=== PATIENT | female | born 1970 | race Caucasian/White ===

== ENCOUNTER → 2017-09-18 | Outpatient (CLI) | payer OTHER | LOC: M LRY 12:38 | DX: S59.901A Unspecified injury of right elbow, initial encounter (principal); S49.91XA Unspecified injury of right shoulder and upper arm, initial encounter; X58.XXXA Exposure to other specified factors, initial encounter; Y92.89 Other specified places as the place of occurrence of the external cause | CPT/HCPCS: 73030; G0463 ==

== ENCOUNTER → 2017-09-18 | Outpatient (CLI) | payer OTHER | LOC: M LRY 12:32 | DX: S49.91XA Unspecified injury of right shoulder and upper arm, initial encounter (principal); S59.901A Unspecified injury of right elbow, initial encounter; X58.XXXA Exposure to other specified factors, initial encounter; Y92.89 Other specified places as the place of occurrence of the external cause ==

== ENCOUNTER → 2018-08-15 | Outpatient (REF) | LOC: M LAB 10:55 | PROVIDERS: ATTEND Nurse Practitioner Adult Health | DX: Z00.00 Encounter for general adult medical examination without abnormal findings (principal) ==

== ENCOUNTER 2019-06-02 17:56 | Emergency (ER) | payer OTHER ==
[~2019-06-02] VITALS: Ht 170.2 cm; Wt 97.7 kg
[2019-06-02] MEDS ORDERED: HYZA100T2 PO (18:38)
[2019-06-02] MEDS ORDERED: LASI40TA9 PO (18:38)
[2019-06-02] MEDS ORDERED: JARD1TAB PO (18:38)
[2019-06-02] MEDS ORDERED: METO1TAB32 PO (18:38)
[2019-06-02] MEDS ORDERED: GLIP10TA PO (18:38)
[2019-06-02] MEDS ORDERED: JANU100T PO (18:38)
[2019-06-02] MEDS ORDERED: ZOLO100T PO (18:38)
[2019-06-02 18:42] LABS: BASO # 0.1 10^3/uL (0.0-0.2); BASO % 0.4 % (0.0-1.0); EOS # 0.2 10^3/uL (0.0-0.5); EOS % 1.5 % (0.0-3.0); HEMATOCRIT 44.2 % (36.0-47.0); HEMOGLOBIN 14.5 g/dl (12.0-15.5); LYMPH # 3.3 10^3/uL (1.5-5.0); LYMPH % 28.3 % (24.0-44.0); MEAN CORPUSCULAR HEMOGLOBIN 26.9 pg (27.0-33.0); MEAN CORPUSCULAR HGB CONC 32.8 g/dl (32.0-36.5); MEAN CORPUSCULAR VOLUME 81.9 fl (80.0-96.0); MONO # 0.6 10^3/uL (0.0-0.8); MONO % 5.1 % (0.0-5.0); NEUTROPHILS # 7.4 10^3/uL (1.5-8.5); PLATELET COUNT, AUTOMATED 247 10^3/uL (150-450); WHITE BLOOD COUNT 11.6 10^3/uL (4.0-10.0)
[2019-06-02 19:09] LABS: BLOOD UREA NITROGEN 18 MG/DL (7-18); CALCIUM LEVEL 9.5 MG/DL (8.5-10.1); CARBON DIOXIDE LEVEL 30 MEQ/L (21-32); CHLORIDE LEVEL 99 MEQ/L (98-107); CK-MB VALUE MASS 1.7 NG/ML (<3.6); CPK CREATINE PHOSPHOKINASE 65 U/L (26-192); CREATININE FOR GFR 1.39 MG/DL (0.55-1.30); GLOMERULAR FILTRATION RATE 42.6 (>51); GLUCOSE, FASTING 218 MG/DL (70-100); MB/CK RELATIVE INDEX 2.62 (< OR =4); SODIUM LEVEL 137 MEQ/L (136-145); TROPONIN I < 0.02 NG/ML (< 0.10)
[2019-06-02] MEDS ORDERED: ASPIRIN 81 MG CHEW TABLET PO ONE (20:15)
[2019-06-02] MEDS: NITROGLYCERIN 0.4 MG SUBL TABLET SL PRN ×2 (20:23→20:50)
[2019-06-02] MEDS ORDERED: ISOVUE-370 76% 100ML VIAL (Q9967) As Ordered ONE (20:31)
[2019-06-02 20:50] VITALS: BP 152/74
--- NOTE | 2019-06-02 20:51 | REPVR ---
PROCEDURE INFORMATION: Exam: CT Angiography Chest With Contrast Exam date and time: 06/02/2019 8:33 PM Clinical history: 49 years old, female; Chest pain; Additional info: R/O pe TECHNIQUE: Imaging protocol: Computed tomographic angiography of the chest with intravenous contrast. 3D rendering: MIP reconstructed images were created and reviewed. Radiation optimization: All CT scans at this facility use at least one of these dose optimization techniques: automated exposure control; mA and/or kV adjustment per patient size (includes targeted exams where dose is matched to clinical indication); or iterative reconstruction. Contrast material: ISOVUE 370; Contrast volume: 75 ml; Contrast route: IV; COMPARISON: CR PORTABLE CHEST X-RAY 06/02/2019 6:20 PM FINDINGS: Pulmonary arteries: There are no pulmonary emboli. Aorta: There is no aortic dissection or aneurysm. Lungs: Bilateral geographic groundglass opacities most consistent with atelectasis less likely mosaic perfusion. Pleural space: Unremarkable. No pneumothorax. No pleural effusion. Heart: Unremarkable. No cardiomegaly. No pericardial effusion. Lymph nodes: Unremarkable. No enlarged lymph nodes. Bones/joints: The spine demonstrates mild degenerative changes. Soft tissues: Unremarkable. IMPRESSION: 1. Bilateral geographic groundglass opacities most consistent with atelectasis less likely mosaic perfusion. 2. There is no aortic dissection or aneurysm. 3. There are no pulmonary emboli. Electronically signed by: Kd Crockett On 06/02/2019 20:51:43 PM
[2019-06-03 01:07] LABS: CK-MB VALUE MASS 1.2 NG/ML (<3.6); CPK CREATINE PHOSPHOKINASE 46 U/L (26-192); MB/CK RELATIVE INDEX 2.61 (< OR =4); TROPONIN I < 0.02 NG/ML (< 0.10)
[2019-06-03 01:45] VITALS: BP 142/73
--- NOTE | 2019-06-03 08:59 | REP ---
CHEST, SINGLE VIEW: There is no evidence of acute infiltrate. No pleural effusion is seen. The heart is normal in size. The mediastinal silhouette is unremarkable. The visualized osseous structures are intact. IMPRESSION: No acute pulmonary disease. Electronically Signed by Weston Frost MD 06/03/2019 09:03 A
--- NOTE | 2019-06-03 17:56 | ECGEPIP ---
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
--- NOTE | 2019-06-03 18:02 | ECGEPIP ---
[facility] - ED Test Date: 2019-06-03 Pat Name: MANUEL LEVI Department: Room: - Gender: Female [employer] Pump Truck Driver: : 1970 Requested By: CARLOZ Rossi Order Number: [id number] Reading MD: Ritu Thurman Measurements Intervals [place] Rate: 57 P: 51 [place]: 165 QRS: 39 QRSD: 94 T: 29 QT: 431 QTc: 421 Interpretive Statements SINUS BRADYCARDIA NSTTW abnormalities DECREASED RATE 06/02/19 18:19 Electronically Signed on 06-03-2019 18:01:53 EST by Ritu Thurman
== END 2019-06-03 01:46 | disposition home or self-care (01) ==
LOC: M ED 17:56
DX: R07.89 Other chest pain (principal); R06.02 Shortness of breath; R51 Headache; E11.9 Type 2 diabetes mellitus without complications; I10 Essential (primary) hypertension; Z79.899 Other long term (current) drug therapy; Z79.84 Long term (current) use of oral hypoglycemic drugs; Z88.8 Allergy status to other drugs, medicaments and biological substances
CPT/HCPCS: 36415; 71045; 71275; 80048; 82550; 82553; 84484; 85025; 93005; 93041; 94760; 99285; Q9967

== ENCOUNTER 2020-04-08 12:15 | Emergency (ER) | payer OTHER ==
[~2020-04-08] VITALS: Ht 170.2 cm; Wt 100.9 kg
[~2020-04-08 12:15] MED LIST: GLIP10TA PO; HYZA100T2 PO; JANU100T PO; JARD1TAB PO; LASI40TA9 PO; METO1TAB32 PO; ZOLO100T PO
[2020-04-08] MEDS ORDERED: LANTINJ4 SC (12:28)
[2020-04-08 13:25] LABS: BASO # 0.1 10^3/uL (0.0-0.2); BASO % 0.6 % (0.0-1.0); EOS # 0.2 10^3/uL (0.0-0.5); EOS % 1.8 % (0.0-3.0); HEMATOCRIT 41.3 % (36.0-47.0); HEMOGLOBIN 13.2 g/dl (12.0-15.5); LYMPH # 3.4 10^3/uL (1.5-5.0); LYMPH % 31.3 % (24.0-44.0); MEAN CORPUSCULAR HEMOGLOBIN 27.2 pg (27.0-33.0); MEAN CORPUSCULAR VOLUME 85.2 fl (80.0-96.0); MONO # 0.6 10^3/uL (0.0-0.8); MONO % 5.4 % (0.0-5.0); NEUTROPHILS # 6.5 10^3/uL (1.5-8.5); NEUTROPHILS % 60.4 % (36.0-66.0); PLATELET COUNT, AUTOMATED 218 10^3/uL (150-450); RED BLOOD COUNT 4.85 10^6/uL (4.00-5.40); WHITE BLOOD COUNT 10.7 10^3/uL (4.0-10.0)
[2020-04-08 13:48] LABS: ALBUMIN 3.5 GM/DL (3.2-5.2); ALT/SGPT 47 U/L (12-78); BILIRUBIN,DIRECT < 0.1 MG/DL (0.0-0.2); BILIRUBIN,TOTAL 0.3 MG/DL (0.2-1.0); BLOOD UREA NITROGEN 12 MG/DL (7-18); CALCIUM LEVEL 8.9 MG/DL (8.5-10.1); CARBON DIOXIDE LEVEL 33 MEQ/L (21-32); CHLORIDE LEVEL 103 MEQ/L (98-107); CREATININE FOR GFR 0.83 MG/DL (0.55-1.30); GLOMERULAR FILTRATION RATE > 60.0 (>51); GLUCOSE, FASTING 170 MG/DL (70-100); LIPASE 106 U/L (73-393); POTASSIUM SERUM 4.1 MEQ/L (3.5-5.1); SODIUM LEVEL 139 MEQ/L (136-145); TOTAL PROTEIN 7.1 GM/DL (6.4-8.2)
[2020-04-08 15:11] VITALS: BP 136/76
--- NOTE | 2020-04-08 15:22 | REPVR ---
PROCEDURE INFORMATION: Exam: US Abdomen, Limited; Right Upper Quadrant Exam date and time: 04/08/2020 3:07 PM Age: 50 years old Clinical indication: Abdominal pain; Generalized; Additional info: Ruq pain into back, HX of sludge TECHNIQUE: Imaging protocol: US abdomen. Real time ultrasound with image documentation. Limited exam focused on the right upper quadrant. COMPARISON: No relevant prior studies available. FINDINGS: Liver: The liver demonstrates increased echogenicity with decreased visualization of periportal fat without sound attenuation. The liver measures 21.3 cm in the midclavicular plane. Gallbladder: The gallbladder wall measures 1.8 mm. No gallstones. Common bile duct: The common bile duct measures 3.5 mm. No ductal calculi as visualized. Pancreas: The pancreas neck and body are unremarkable. The tail of the gland is obscured by bowel gas. Right kidney: The right kidney measures 11.9 x 5.4 x 4.5 cm. Unremarkable. A brief color Doppler examination of the right kidney was performed showing normal color shifts. Portal venous: A brief color Doppler examination of the portal vein was performed showing normal hepatopedal flow. IMPRESSION: 1. Limitations as above. 2. Mild fatty infiltration of the liver. 3. Mild hepatomegaly. Electronically signed by: Richar Encarnacion On 04/08/2020 15:22:17 PM
--- NOTE | 2020-04-10 16:47 | ED PDOC ---
Post-Departure Follow-Up gb us faxed to [facility] for fu Rubio Rodriguez MD Apr 10, 2020 16:47
== END 2020-04-08 15:51 | disposition home or self-care (01) ==
LOC: M ED 12:15
DX: R10.11 Right upper quadrant pain (principal); R11.0 Nausea; I10 Essential (primary) hypertension; K21.9 Gastro-esophageal reflux disease without esophagitis; K76.0 Fatty (change of) liver, not elsewhere classified; R16.0 Hepatomegaly, not elsewhere classified; E11.9 Type 2 diabetes mellitus without complications; F41.9 Anxiety disorder, unspecified; Z78.0 Asymptomatic menopausal state; Z79.4 Long term (current) use of insulin; Z79.899 Other long term (current) drug therapy; Z88.8 Allergy status to other drugs, medicaments and biological substances